=== PATIENT | female | born 1990 | race Caucasian/White ===

== ENCOUNTER 2016-12-25 01:51 | Inpatient (IN) | payer OTHER ==
[2016-12-25] MEDS ORDERED: Lidocaine 1% 50 ML MDV INJECT PRN (03:00)
[2016-12-25] MEDS ORDERED: Oxytocin/0.9 % Sodium Chloride 30 UNIT/500 ML BAG IV SCH (03:00)
[2016-12-25] MEDS ORDERED: Nalbuphine 10 MG/1 ML Vial IVPUSH PRN (03:00)
[2016-12-25] MEDS ORDERED: Sodium Chloride 0.9% 2.5 ML Syringe FLUSH PRN (03:00)
[2016-12-25] MEDS ORDERED: Sodium Chloride 0.9% 10 ML Syringe FLUSH PRN (03:00)
[2016-12-25] MEDS ORDERED: Misoprostol 200 MCG Tab PO PRN (03:00)
[2016-12-25] MEDS ORDERED: Butorphanol 1 MG/ML SDV IVPUSH PRN (03:00)
[2016-12-25] MEDS ORDERED: Methylergonovine 0.2 MG/1 ML Amp IM PRN (03:00)
[2016-12-25] MEDS ORDERED: Water For Irrigation,Sterile 1,000 ML Container IRR PRN (03:00)
[2016-12-25] MEDS ORDERED: Carboprost Tromethamine 250 MCG/1 ML Amp IM PRN (03:00)
[2016-12-25] MEDS: Lactated Ringers 1,000 ML IV SCH ×4 (03:21→07:20)
[2016-12-25] MEDS ORDERED: fentaNYL 100 MCG/2 ML SDV ONE (03:55)
[2016-12-25] MEDS ORDERED: Ropivacaine 0.2% 2 MG/ML 20 ML SDV ONE (03:56)
[2016-12-25] MEDS ORDERED: Ropivacaine HCl/PF 100 ML ONE (03:56)
[2016-12-25] MEDS ORDERED: Lidocaine 2% 5 ML SDV ONE (04:22)
--- NOTE | 2016-12-25 04:51 | PCM.PREANE ---
Preanesthetic Assessment - Procedure Proposed Procedure: labor epidural - Anesthesia/Transfusion/Family Hx Anesthesia History: Prior Anesthesia Without Reaction (previous epidurals, t/a) Family History of Anesthesia Reaction: No Transfusion History: No Prior Transfusion(s) - Review of Systems General: No Symptoms Pulmonary: No Symptoms Cardiovascular: No Symptoms Gastrointestinal: No Symptoms Neurological: No Symptoms Other: Reports: None - Physical Assessment Height: 1.78 m Weight: 78.018 kg ASA Class: 2 Mental Status: Alert & Oriented x3 Airway Class: Mallampati = 1 Dentition: Reports: Normal Dentition Thyro-Mental Finger Breadths: 3 Mouth Opening Finger Breadths: 3 ROM/Head Extension: Full Lungs: Clear to Auscultation, Normal Respiratory Effort Cardiovascular: Regular Rate, Regular Rhythm - Lab Values: Laboratory Last Values WBC 8.48 K/uL (4.0-11.0) 12/25/16 03:18 RBC 4.05 M/uL (4.30-5.90) L 12/25/16 03:18 Hgb 13.1 g/dL (12.0-16.0) 12/25/16 03:18 Hct 37.8 % (36.0-46.0) 12/25/16 03:18 MCV 93.3 fL (80.0-98.0) 12/25/16 03:18 MCH 32.3 pg (27.0-32.0) H 12/25/16 03:18 MCHC 34.7 g/dL (31.0-37.0) 12/25/16 03:18 RDW Std Deviation 43.8 fl (28.0-62.0) 12/25/16 03:18 RDW Coeff of Nadeen 13 % (11.0-15.0) 12/25/16 03:18 Plt Count 133 K/uL (150-400) L 12/25/16 03:18 MPV 12.20 fL (7.40-12.00) H 12/25/16 03:18 Nucleated RBC % 0.0 /100WBC 12/25/16 03:18 Nucleated RBCs # 0 K/uL 12/25/16 03:18 Blood Type A POSITIVE 12/25/16 03:18 Antibody Screen NEGATIVE 12/25/16 03:18 - Allergies Allergies/Adverse Reactions: Allergies Allergy/AdvReac Type Severity Reaction Status Date / Time No Known Allergies Allergy Verified 12/25/16 02:59 - Blood Blood Available: Yes Product(s) Available: PRBC - Acknowledgements Anesthesia Type Planned: Epidural Pt an Appropriate Candidate for the Planned Anesthesia: Yes Alternatives and Risks of Anesthesia Discussed w Pt/Guardian: Yes Pt/Guardian Understands and Agrees with Anesthesia Plan: Yes PreAnesthesia Questionnaire HEENT History: Reports: None 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: - Past Surgical History HEENT Surgical History: Reports: Tonsillectomy - SUBSTANCE USE Smoking Status *Q: Never Smoker Second Hand Smoke Exposure: No Days Per Week of Alcohol Use: 0 Recreational Drug Use History: No - HOME MEDS Home Medications: Home Meds Pnv with Ca,No.72/Iron/Fa [Pnv Plus Multivit Tab] 1 each PO 01/13/14 [ History] Acetaminophen [Tylenol Extra Strength] 500 mg PO Q4H PRN #1 tab 01/14/14 [Rx] Ibuprofen [Motrin] 400 mg PO Q4H PRN #1 tablet 01/14/14 [Rx] Lanolin [Lansinoh HPA] 40 gm TOP ASDIRECTED PRN #1 crm 01/14/14 [Rx] - CURRENT (IN HOUSE) MEDS Current Meds: Current Medications Butorphanol Tartrate (Stadol) 1 mg IVPUSH Q1H PRN PRN Reason: Pain Carboprost Tromethamine (Hemabate Ds) 250 mcg IM ASDIRECTED PRN PRN Reason: Post Hemorrhage Lactated Ringer's (Ringers, Lactated) 1,000 mls @ 150 mls/hr IV ASDIRECTED [facility] Last Admin: 12/25/16 04:24 Dose: 150 mls/hr Oxytocin/Sodium Chloride (Oxytocin 30 Unit/500 Ml-Ns) 30 unit in 500 mls @ 999 mls/hr IV TITRATE [facility] Lidocaine HCl (Xylocaine 1%) 50 ml INJECT .ONCE PRN PRN Reason: Laceration repair Methylergonovine Maleate (Methergine) 0.2 mg IM ASDIRECTED PRN PRN Reason: Post Hemorrhage Misoprostol (Cytotec) 200 mcg PO .ONCE PRN PRN Reason: Post Hemorrhage Nalbuphine HCl (Nubain) 10 mg IVPUSH Q1H PRN PRN Reason: Pain (severe 7-10) Sodium Chloride (Saline Flush) 10 ml FLUSH ASDIRECTED PRN PRN Reason: Keep Vein Open Sodium Chloride (Saline Flush) 2.5 ml FLUSH ASDIRECTED PRN PRN Reason: Keep Vein Open Sterile Water (Sterile Water For Irrigation) 1,000 ml IRR ASDIRECTED PRN PRN Reason: delivery Discontinued Medications Fentanyl (Sublimaze) Confirm Administered Dose 300 mcg .ROUTE .STK-MED ONE Stop: 12/25/16 03:56 Ropivacaine (Naropin 0.2%) Confirm Administered Dose 100 mls @ as directed .ROUTE .STK-MED ONE Stop: 12/25/16 03:57 Lidocaine (Xylocaine-Mpf 2%) Confirm Administered Dose 5 ml .ROUTE .STK-MED ONE Stop: 12/25/16 04:23 Ropivacaine (Naropin 0.2%) Confirm Administered Dose 20 ml .ROUTE .STK-MED ONE Stop: 12/25/16 03:57
--- NOTE | 2016-12-25 05:02 | PCM.PRNOTE ---
- Free Text/Narrative Note: called for pt in pain with labor. chart reviewed, pt identified. discussed procedure with pt including risks of nerve pain, nerve damage, bleeding, infection. pt agrees, consent signed previously. Pt sitting up, sterile betadine prep x 3, sterile drape. 1% lidocaine SQ at L4. #25 touhy CRISTOFER saline uneventful placement but positive heme through catheter. catheter removed. L3 localized as previous. #25 touhy, os x 2. needle redirect to right and directed caudal, advanced without further problem. no heme, no paresthesia with needle advancement. catheter placed to 12 cm at skin.pt test dose 1.5% lidocaine with epinephrine 1:200,000. Negative reaction noted. bolus of 100 mcg fentanyl with 4 ml ropivicaine via epidural catheter. Pt felt relief within two contractions. Level with cold/wet sensation noted to be initially T9 on right and T10 on left. Pt in ANSON position. Epidural drip of 0.2 % ropivicaine with fentanyl 2 mcg/ml started at 8 ml/hr with PCEA bolus set at 6 ml/15 min with hour limit of 32 ml. educated regarding use of PCEA pump. Pain level 2/10, no complications noted. level evened out within 5 minutes of bolus dosing at T10.
[2016-12-25] MEDS ORDERED: Ibuprofen 400 MG Tab PO PRN (08:43)
[2016-12-25] MEDS ORDERED: Benzocaine/Menthol 20%-0.5% Spray 78 GM Cannister TOP PRN (08:43)
[2016-12-25] MEDS ORDERED: Witch Hazel Medicated Pads 40/Jar TOP PRN (08:43)
[2016-12-25] MEDS ORDERED: Docusate Sodium 100 MG Cap PO PRN (08:43)
[2016-12-25] MEDS ORDERED: Lanolin 100% Cream 7 GM Tube TOP PRN (08:43)
[2016-12-25] MEDS ORDERED: oxyCODONE 5 MG Tab PO PRN (08:43)
[2016-12-25] MEDS ORDERED: Acetaminophen 500 MG Tab PO PRN ×2 (08:43)
[2016-12-25] MEDS ORDERED: Bisacodyl 10 MG Supp RECTAL PRN (08:43)
[2016-12-25] MEDS: Ibuprofen 800 MG Tab PO PRN ×2 (11:01→21:29)
[2016-12-26 08:23] VITALS: BP 110/74
--- NOTE | 2016-12-26 10:46 | PCM.PNPP ---
- General Info Date of Service: 12/26/16 Admission Dx/Problem (Free Text): 26 yo P3 s/p PPD1 Subjective Update: Patient is ambulating , voiding , tolerating regular diet . she is Functional Status: Reports: Pain Controlled, Tolerating Diet, Ambulating, Urinating - Review of Systems General: Reports: No Symptoms HEENT: Reports: No Symptoms Pulmonary: Reports: No Symptoms Cardiovascular: Reports: No Symptoms Gastrointestinal: Reports: No Symptoms Genitourinary: Reports: No Symptoms Musculoskeletal: Reports: No Symptoms Skin: Reports: No Symptoms Neurological: Reports: No Symptoms Psychiatric: Reports: Agitation - General Info Date of Service: 12/26/16 - Patient Data Vital Signs - Most Recent: Last Vital Signs Temp 36.9 C 12/26/16 08:00 Pulse 82 12/26/16 08:00 Resp 18 12/26/16 08:00 BP 110/74 12/26/16 08:00 Pulse Ox 97 12/26/16 04:00 Weight - Most Recent: 78.018 kg Lab Results - Last 24 Hours: Laboratory Results - last 24 hr 12/26/16 Range/Units 05:23 Hgb 12.2 (12.0-16.0) g/dL Hct 36.8 (36.0-46.0) % Med Orders - Current: Current Medications Acetaminophen (Tylenol Extra Strength) 500 mg PO Q4H PRN PRN Reason: Pain Last Admin: 12/25/16 15:53 Dose: 500 mg Acetaminophen (Tylenol Extra Strength) 1,000 mg PO Q4H PRN PRN Reason: Pain Benzocaine/Menthol (Dermoplast Pain Relief 20%-0.5% [place]) 78 gm TOP ASDIRECTED PRN PRN Reason: Perineal Comfort Measure Last Admin: 12/25/16 10:59 Dose: 1 applic Bisacodyl (Dulcolax) 10 mg RECTAL .ONCE PRN PRN Reason: Constipation Butorphanol Tartrate (Stadol) 1 mg IVPUSH Q1H PRN PRN Reason: Pain Carboprost Tromethamine (Hemabate Ds) 250 mcg IM ASDIRECTED PRN PRN Reason: Post Hemorrhage Docusate Sodium (Colace) 100 mg PO BID PRN PRN Reason: Constipation Emollient Ointment (Lansinoh Hpa) 0 gm TOP ASDIRECTED PRN PRN Reason: Sore Nipples Last Admin: 12/25/16 11:00 Dose: 1 applic Lactated Ringer's (Ringers, Lactated) 1,000 mls @ 150 mls/hr IV [facility]IRECTED [facility] Last Admin: 12/25/16 07:20 Dose: 150 mls/hr Oxytocin/Sodium Chloride (Oxytocin 30 Unit/500 Ml-Ns) 30 unit in 500 mls @ 999 mls/hr IV TITRATE [facility] Last Admin: 12/25/16 08:20 Dose: 999 mls/hr Ibuprofen (Motrin) 400 mg PO Q4H PRN PRN Reason: Pain Ibuprofen (Motrin) 800 mg PO Q6H PRN PRN Reason: Pain Last Admin: 12/25/16 21:29 Dose: 800 mg Lidocaine HCl (Xylocaine 1%) 50 ml INJECT .ONCE PRN PRN Reason: Laceration repair Methylergonovine Maleate (Methergine) 0.2 mg IM ASDIRECTED PRN PRN Reason: Post Hemorrhage Misoprostol (Cytotec) 200 mcg PO .ONCE PRN PRN Reason: Post Hemorrhage Nalbuphine HCl (Nubain) 10 mg IVPUSH Q1H PRN PRN Reason: Pain (severe 7-10) Oxycodone HCl (Oxycodone) 5 mg PO Q2H PRN PRN Reason: Pain Sodium Chloride (Saline Flush) 10 ml FLUSH ASDIRECTED PRN PRN Reason: Keep Vein Open Sodium Chloride (Saline Flush) 2.5 ml FLUSH ASDIRECTED PRN PRN Reason: Keep Vein Open Sterile Water (Sterile Water For Irrigation) 1,000 ml IRR ASDIRECTED PRN PRN Reason: delivery Last Admin: 12/25/16 09:02 Dose: 1,000 ml Witch Rebekah (Tucks) 1 pad TOP ASDIRECTED PRN PRN Reason: comfort care Discontinued Medications Fentanyl (Sublimaze) Confirm Administered Dose 300 mcg .ROUTE .STK-MED ONE Stop: 12/25/16 03:56 Last Admin: 12/25/16 16:04 Dose: Not Given Ropivacaine (Naropin 0.2%) Confirm Administered Dose 100 mls @ as directed .ROUTE .STK-MED ONE Stop: 12/25/16 03:57 Last Admin: 12/25/16 16:04 Dose: Not Given Lidocaine (Xylocaine-Mpf 2%) Confirm Administered Dose 5 ml .ROUTE .STK-MED ONE Stop: 12/25/16 04:23 Last Admin: 12/25/16 16:05 Dose: Not Given Ropivacaine (Naropin 0.2%) Confirm Administered Dose 20 ml .ROUTE .STK-MED ONE Stop: 12/25/16 03:57 Last Admin: 12/25/16 16:04 Dose: Not Given - Interaction Infant Disposition, : [place] to Nursery Support Person: - Recovery Exam Fundal Tone: Firm Fundal Level: 2 Fingerbreadths Below Umbilicus Fundal Placement: Midline Lochia Amount: Scant Lochia Color: Rubra/Red Perineum Description: Intact, Minimal Bruising/Swelling Episiotomy/Laceration: None Bladder Status: Voiding Urinary Elimination: Voided - Exam General: Alert HEENT: Pupils Equal Lungs: Clear to Auscultation Cardiovascular: Regular Rate, Regular Rhythm GI/Abdominal Exam: Normal Bowel Sounds Extremities: Normal Inspection Wound/Incisions: Healing Well - Problem List & Annotations (1) Vaginal delivery SNOMED Code(s): 508792283 Code(s): O80 - ENCOUNTER FOR FULL-TERM UNCOMPLICATED DELIVERY Status: Acute Current Visit: No - Problem List Review Problem List Initiated/Reviewed/Updated: Yes - Assessment Assessment:: 26yo P3 s/p PPD1 - Plan Plan:: Discharge home today Continue Iron and PNV OTC pain control with Motrin and tylenol
[2016-12-26] MEDS ORDERED: Measles, Mumps & Rubella Vaccine 0.5 ML SDV SUBCUT ONE (10:53)
--- NOTE | 2016-12-26 15:44 | OR ---
SURGEON: GAYLE SKAGGS PREOPERATIVE DIAGNOSES: A 26-year-old, G3, P2, at 39 weeks 6 days, admitted for in active labor. GBS negative. POSTOPERATIVE DIAGNOSIS: Status post normal spontaneous vaginal delivery at 39 weeks 6 days. Intact perineum. ANESTHESIA: Epidural. ESTIMATED BLOOD LOSS: 300. HISTORY: The patient is a 26-year-old G3, P2 at 39 weeks 6 days low-risk patient who presented with in active labor, complaining of contractions. On presentation, she was found to be 6, 80, -2. At around 3:00 a.m., she made change to 7, 70, -2. She became fully dilated at 8:13 a.m. The patient was encouraged to push. During the labor course, the patient had a category 1 heart tracing. She was encouraged to push. FINDINGS: Live male was delivered at 08:16 a.m. was 9 and 9. The perineum was intact. Weight was 3980 g. PROCEDURE DETAIL: With good pushing effort, the patient delivered head followed by the anterior shoulder, then the posterior shoulder. The body was then subsequently delivered. The infant was placed on the mother's abdomen. The delayed cord clamping was observed. After the cord was clamped and cut, the placenta was delivered via controlled cord traction. The placenta was inspected and was noted to be intact. The perineum was also inspected and noted to be intact. All instruments and pad counts were correct x2. Dr. Brooks was present for the entire procedure. WILBERT LICEA /[id number]
[2016-12-28] MEDS ORDERED: Measles, Mumps & Rubella Vaccine 0.5 ML SDV SUBCUT ONE (10:53)
== END 2016-12-26 12:05 | disposition home or self-care (01) | DRG 775 ==
LOC: MW.OBCHECK 01:51 → MW.OB 01:57 → MW.OBCHECK 02:46 → OBSVTOIN 08:16 → MW.OB 11:28
PROVIDERS: ADMIT Obstetrics & Gynecology; ATTEND Obstetrics & Gynecology
PROC: 10E0XZZ Delivery of Products of Conception, External Approach (ICD-10-PCS; principal; 2016-12-25)
DX: O80 Encounter for full-term uncomplicated delivery (principal); Z3A.39 39 weeks gestation of pregnancy; Z37.0 Single live birth
CPT/HCPCS: 01967; 36415; 51701; 51702; 59025; 59409; 85014; 85018; 85027; 86850; 86900; 86901; 90471; 90707; A9270-GY; J2590; J7120